=== PATIENT | male | born 1975 | race African-American/Black ===

== ENCOUNTER 2021-10-07 16:32 | Emergency (ER) | payer OTHER ==
[2021-10-07] MEDS ORDERED: Bacitracin 1 PK ONE (18:09)
== END 2021-10-07 18:11 | disposition home or self-care (01) ==
LOC: CSHERS 16:32
DX: S81.812A Laceration without foreign body, left lower leg, initial encounter (principal); E11.9 Type 2 diabetes mellitus without complications; W26.8XXA Contact with other sharp object(s), not elsewhere classified, initial encounter
CPT/HCPCS: 12001

== ENCOUNTER 2021-10-11 20:20 | Emergency (ER) | payer BC, OTHER, SELFPAY ==
[2021-10-11] MEDS ORDERED: Acetaminophen/Codeine 30-300mg Tablet ONE (21:25)
[2021-10-11] MEDS ORDERED: Ibuprofen 200 MG TAB ONE (21:25)
== END 2021-10-11 22:04 | disposition home or self-care (01) ==
LOC: CSHERS 20:20
DX: L03.116 Cellulitis of left lower limb (principal); E11.9 Type 2 diabetes mellitus without complications; E78.5 Hyperlipidemia, unspecified; I10 Essential (primary) hypertension; Z79.899 Other long term (current) drug therapy; Z79.84 Long term (current) use of oral hypoglycemic drugs